=== PATIENT | female | born 1975 | race Caucasian/White ===

== ENCOUNTER 2018-08-17 11:27 | Outpatient (CLI) | END 2018-08-17 14:55 | disposition home or self-care (01) ==

== ENCOUNTER 2018-08-20 17:47 | Outpatient (CLI) | END 2018-08-20 23:57 | disposition home or self-care (01) ==

== ENCOUNTER 2018-08-23 14:14 | Outpatient (CLI) | END 2018-08-23 17:50 | disposition home or self-care (01) ==

== ENCOUNTER 2018-08-30 18:50 | Outpatient (CLI) | END 2018-08-31 01:18 | disposition home or self-care (01) ==

== ENCOUNTER 2018-09-06 10:16 | Outpatient (CLI) | END 2018-09-06 11:00 | disposition home or self-care (01) ==

== ENCOUNTER 2018-11-03 16:13 | Outpatient (CLI) | payer MEDICAID ==
[~2018-11-03] VITALS: Ht 152.4 cm; Wt 60.7 kg
[~2018-11-03 16:13] MED LIST: CALC600T24 PO; FER325 PO; PREN-93 PO
[2018-11-03 17:17] VITALS: Ht 152.4 cm; Wt 60.7 kg
[2018-11-03 17:18] VITALS: BP 103/66
--- NOTE | 2018-11-03 18:55 | PN ---
Triage Information Date/Time November 03, 2018 Reason for visit: Patient here today due to a sleep of water mixed with bleach drank yesterday. Weeks of Gestation 33 weeks and 2 days /Para 9 para 6 Diabetes: none Hypertention: none Additional information 43-year-old with IUP at 33 weeks and 2 days presented to triage due to concern of a sip of water mixed with bleach yesterday. Patient excellently drank a sip of water and bleach. [place] initially some burning in her esophagus and then the symptoms resolved. She denies any leaking of fluid, vaginal bleeding decreased movement contractions or any other complaint. Denies any comp occasions during her antepartum course. Denies any nausea vomiting after she ingested bleach with water. Reports that it was a scant amount. Denies any dysphagia, loss of appetite, abdominal pain, diarrhea, change in bowel movement or any other symptoms. Objective Vital Signs Date Temp Pulse Resp B/P (MAP) Pulse Ox O2 O2 Flow FiO2 Time Delivery Rate 11/03/18 98.0 103/66 17:18 (78) Heart Rate: 130's Heart Rate Comments Category 1 and appropriate for gestational age Contractions: None Exam General appearance: Alert and oriented x4 does not appear to be in any acute distress Abdomen: Soft, gravid, fundal height consider gestational age, no tenderness, no rebound tenderness, no guarding, no rigidity NST: Category 1 BPP: 8/8 Results/Medications Imaging Results PROCEDURE: US Obstetrical , limited CLINICAL INDICATION: Biophysical profile for well being, drank bleach. TECHNIQUE: Multiple real-time images were acquired of the patient's maternal abdomen utilizing a curved array transducer. COMPARISON: 08/23/2018 FINDINGS: There is a single live intrauterine fetus in a cephalic presentation. The placenta is implanted anterior fundal and is grade II. There is no placenta previa or abruptio. The amniotic fluid index measures 13.2 cm. The heart rate is 159 beats per minute. Biophysical profile: Tone: 2 breathin Gross body movement: 2 Amniotic fluid: 2 Biophysical profile score: 8/8 IMPRESSION: 1. Single live intrauterine fetus, now cephalic in presentation. The heart rate is 159 bpm. 2. Fundal anterior placenta, grade 2, no previa or abruptio is evident. 3. Amniotic fluid index 13.2 cm. 4. Biophysical profile score: 8/8. Disposition: Discharge Assessment/Plan IUP at 33 weeks and 2 days No evidence of labor or PPROM Accidental scant ingestion of water mixed with bleach yesterday. Denies any symptom beside scant burning when she ingested the scant sip and the symptoms resolved. Exam is benign. Incident happened yesterday. Patient is completely asymptomatic. Patient was warned against using any chemicals during . At this point I do not see any obstetrical issue Exam is completely benign. Denies any symptoms. Discussed with the patient about labor precautions kick counts careful about labeling and misplacing of the chemical Advised to have a follow-up with her primary OB office within 48 hours after discharge from the hospital or sooner as needed strict labor precautions kick count discussed Patient verbalized understanding. All questions were answered to the patient's best satisfaction. LEIF CHENG MD Nov 03, 2018 18:55
--- NOTE | 2018-11-03 19:01 | TRIAGE ---
OB Triage Datetime Report Generated by CPN: 11/03/2018 19:01 Datetime: 11/03/2018 18:38 Labor Evaluation Frequency: 0 Monitor Mode: External Pattern: Normal: <= 5 Contractions in 10 Minutes Resting Tone [place]: Relaxed Heart Rate FHR Baseline Rate: 135 Monitor Mode: External US FHR Baseline Changes: No Baseline Change Variability: Moderate 6-25 bpm Accelerations: 15X15 Decelerations: None Pain Presence: None/Denies Pain Type: N/A Datetime: 11/03/2018 18:18 Labor Evaluation Frequency: 0 Monitor Mode: External Pattern: Normal: <= 5 Contractions in 10 Minutes Heart Rate FHR Baseline Rate: 145 Monitor Mode: External US Variability: Moderate 6-25 bpm Accelerations: 15X15 Decelerations: None Category: Category I Datetime: 11/03/2018 18:00 Comments: US AT BEDSID Datetime: 11/03/2018 17:08 Stage of : OB Triage Assessment Type: Triage Maternal Assessment Level of Consciousness: Fully Conscious DTR's/Clonus: DTRs 2+; No Clonus Headache: Denies Blurred Vision: No Respiratory Effort: Unlabored; Regular Rhythm; Equal Expansion Breath Sounds, Left: Clear and Equal Breath Sounds, Right: Clear and Equal Nausea/Vomiting: Denies RUQ Epigastric Pain: Denies Lower Extremities Edema: None Degree: None Upper Extremities Edema: None Degree: None Facial Edema: None Temperature Route: Oral Fall Risk Assessment History of Falling: (0) No Secondary Diagnosis: (0) No Ambulatory Aid: (0) Bedrest/Nurse Assist IV Therapy: (0) No Gait: (0) Normal/Bedrest/Immobile Mental Status: (0) Oriented to Own Ability Fall Score: 0 Fall Risk Score Definition: No Risk: No action required Monitor Mode: External Monitor Mode: External US Pain Assessment Pain Scale: 0 Pain Presence: None/Denies Pain Type: N/A Datetime: 11/03/2018 17:07 Time of Arrival: 11/03/2018 16:07 EGA: 33.2 Arrived By: Ambulatory Arrived From: Home Chief Complaint: drank bleach Movement: Present Contractions: Denies/Absent Rupture of Membranes: Denies Vaginal Bleeding: None Vaginal Discharge: Denies Recent Sexual Intercouse: Denies Abdominal Trauma: Not Applicable Patient Complaints: None Time Provider Notified: 11/03/2018 18:50 Provider Notified: DR. BECKHAM Initial Plan: nst bpp Datetime: 09/06/2018 10:52 Assessment Type: Triage Maternal Assessment Level of Consciousness: Fully Conscious DTR's/Clonus: DTRs 2+; No Clonus Headache: Denies Blurred Vision: No Respiratory Effort: Unlabored; Regular Rhythm; Equal Expansion Breath Sounds, Left: Clear and Equal Breath Sounds, Right: Clear and Equal Nausea/Vomiting: Denies RUQ Epigastric Pain: Denies Facial Edema: None Fall Risk Assessment History of Falling: (0) No Secondary Diagnosis: (0) No Ambulatory Aid: (0) Bedrest/Nurse Assist IV Therapy: (0) No Gait: (0) Normal/Bedrest/Immobile Mental Status: (0) Oriented to Own Ability Fall Score: 0 Fall Risk Score Definition: No Risk: No action required Datetime: 09/06/2018 10:48 Time of Arrival: 09/06/2018 10:48 EGA: 25.0 Arrived By: Ambulatory Arrived From: Home Chief Complaint: here for iv ferritin infusion Movement: Present Contractions: Denies/Absent Rupture of Membranes: Denies Vaginal Bleeding: None Recent Sexual Intercouse: Denies Abdominal Trauma: Not Applicable Patient Complaints: None Datetime: 08/30/2018 20:42 Fall Score: 0 Fall Risk Score Definition: No Risk: No action required Datetime: 08/30/2018 18:42 EGA: 24.0 Chief Complaint: Anemic, here on unit for Iron Infusion Datetime: 08/23/2018 14:59 Fall Score: 0 Fall Risk Score Definition: No Risk: No action required Datetime: 08/23/2018 14:58 EGA: 23.0 Datetime: 08/20/2018 17:58 EGA: 22.4 Datetime: 08/20/2018 17:56 Fall Score: 0 Fall Risk Score Definition: No Risk: No action required Datetime: 08/17/2018 11:58 Fall Score: 0 Fall Risk Score Definition: No Risk: No action required Datetime: 08/17/2018 11:57 EGA: 22.1
== END 2018-11-03 18:50 | disposition home or self-care (01) ==
LOC: OBT 16:13 → L-D 16:14 → OBT 18:50
PROVIDERS: ATTEND Obstetrics & Gynecology
DX: O26.893 Other specified pregnancy related conditions, third trimester (principal); T54.91XA Toxic effect of unspecified corrosive substance, accidental (unintentional), initial encounter; O09.523 Supervision of elderly multigravida, third trimester; Z3A.33 33 weeks gestation of pregnancy
CPT/HCPCS: 76818; Z7500; G0463